=== PATIENT | female | born 1955 | race Caucasian/White ===

== ENCOUNTER 2017-07-03 20:21 | Emergency (ER) | payer OTHER ==
[2017-07-03] MEDS ORDERED: Aspirin Low Dose CHEW TAB* 81 MG PO ONE (21:01)
[2017-07-03] MEDS ORDERED: Nitroglycerin TAB 0.4 MG* 0.4 MG TAB SL ONE (21:09)
[2017-07-03] MEDS ORDERED: Metoprolol Tartrate TAB* 25 MG PO ONE (21:10)
[2017-07-03 21:30] LABS: Hematocrit 40 % (35-47); Hemoglobin 13.1 g/dl (12.0-16.0); Mean Corpuscular HGB Conc 33 g/dl (31-36); Mean Corpuscular Hemoglobin 28 pg (27-31); Mean Corpuscular Volume 85 fL (80-97); Mean Platelet Volume 8 um3 (7.4-10.4); Red Blood Count 4.67 10^6/ul (4.0-5.4); Red Cell Distribution Width 14 % (10.5-15); White Blood Count 13.4 10^3/ul (3.5-10.8)
[2017-07-03 21:44] LABS: Calcium 9.4 mg/dL (8.6-10.3); EGFR African American 100.4 (>60); Globulin 3.1 g/dL (2-4); Potassium 3.9 mmol/L (3.5-5.0); Total Bilirubin 0.2 mg/dL (0.2-1.0); Total Protein 7.1 g/dL (6.4-8.9)
--- NOTE | 2017-07-03 22:03 | RAD ---
INDICATION: Chest pain COMPARISON: Chest x-ray October 21, 2010 TECHNIQUE: Single AP portable view of the chest was obtained. FINDINGS: Image quality is compromised due to the relative inferiority of a portable chest x-ray. The heart and mediastinum exhibit normal size and contour. The lungs are grossly clear. There is no evidence of a large pleural effusion. Visualized bones are normal for the patient's age. IMPRESSION: No radiographic evidence for acute cardiopulmonary abnormality on this portable chest x-ray.
--- NOTE | 2017-07-04 00:25 | ED ---
Nkechi Anderson Alfonso, scribed for Brittaney Mclaughlin MD on 07/04/17 at 0024 . Progress - Progress Note Progress Note: REEVALUATION AT 0020 repeat troponin 0 Reviewed labs with patient. Expressed to the patient medical advice that she should stay for further work up and management including a stress test. The risks of leaving AMA, including , reviewed with patient. Pt states has to go home second to animals at home. Recommend pt call 911, return if changes her mind or any symptoms. REviewed risks of leaving - paperwork reviewed and signed. She understands and agrees. Pt will call PCP tomorrow morning or return Course/Dx - Diagnoses Provider Diagnoses: Angina of effort, Hypertension, uncontrolled The documentation as recorded by the Nkechi dave Alfonso accurately reflects the service I personally performed and the decisions made by me, Brittaney Mclaughlin MD.
[2017-07-04 01:18] VITALS: BP 180/79
--- NOTE | 2017-07-04 13:20 | ED ---
Tristin Anderson Nilda, scribed for Darryl Maher MD on 07/03/17 at 2153 . Complex/Multi-Sys Presentation - HPI Summary HPI Summary: This patient is a 62 year old F BIBA presenting to [facility] with a chief complaint of left arm pain after putting up fencing in her yard earlier today. The patient rates the pain 0/10 in severity. Symptoms aggravated by nothing. Symptoms alleviated by spontaneous resolution. Patient reports jaw pain and fatigue. Patient denies CP, SOB, and edema. PMHx includes cancer and borderline diabetes. FHx CO. - History Of Current Complaint Chief Complaint: EDChestPainROMI Time Seen by Provider: 07/03/17 21:00 Hx Obtained From: Patient Onset/Duration: Sudden Onset, Lasting Hours Severity Currently: None Associated Signs And Symptoms: Positive: Other - jaw pain and fatigue; denies CP , SOB, taking aspirin, and edema - Allergies/Home Medications Allergies/Adverse Reactions: Allergies Allergy/AdvReac Type Severity Reaction Status Date / Time Latex Allergy Coughing Verified 05/29/16 11:14 PMH/Surg Hx/FS Hx/Imm Hx Endocrine/Hematology History: Denies: Hx Diabetes, Hx Anemia - POST MENOPAUSAL BLEEDING Cardiovascular History: Denies: Hx Congestive Heart Failure, Hx Hypertension, Hx Pacemaker/ICD History: Denies: Hx Renal Disease Sensory History: Reports: Hx Contacts or Glasses - GLASSES WILL LEAVE AT HOME ON DOS Denies: Hx Hearing Aid Opthamlomology History: Reports: Hx Contacts or Glasses - GLASSES WILL LEAVE AT HOME ON DOS Neurological History: Reports: Hx Headaches, Hx Migraine - OCCASIONALLY Psychiatric History: Denies: Hx Panic Disorder - Cancer History Hx Chemotherapy: No Hx Radiation Therapy: No - Surgical History Surgery Procedure, Year, and Place: APPENDECTOMY 2001. LEFT KNEE SCOPING 2008 [facility] [place]. D & C 's Hx Anesthesia Reactions: No Infectious Disease History: No Infectious Disease History: Denies: Traveled Outside the [place] in Last 30 Days - Family History Known Family History: Positive: Cardiac Disease - Social History Alcohol Use: Rare Alcohol Amount: 2 DRINKS MONTHLY Substance Use Type: Reports: None Smoking Status (MU): Never Smoked Tobacco Review of Systems Positive: Fatigue. Negative: Fever, Chills Negative: Erythema Negative: Sore Throat Negative: Chest Pain Negative: Shortness Of Breath, Cough Negative: Abdominal Pain, Vomiting, Nausea Negative: dysuria, flank pain Positive: Other - jaw pain and arm pain. Negative: Myalgia, Edema Negative: Rash Neurological: Other - negative dizziness All Other Systems Reviewed And Are Negative: Yes Physical Exam - Summary Physical Exam Summary: Constitutional: Well-developed, Well-nourished, Alert. (-) Distressed Skin: Warm, Dry HENT: Normocephalic; Atraumatic Eyes: Conjunctiva normal Neck: Musculoskeletal ROM normal neck. (-) JVD, (-) Stridor, (-) Tracheal deviation Cardio: Rhythm regular, rate normal, Heart sounds normal; Intact distal pulses; The pedal pulses are 2+ and symmetric. Radial pulses are 2+ and symmetric. (-) Murmur Pulmonary/Chest wall: Effort normal. (-) Respiratory distress, (-) Wheezes, (-) Rales Abd: Soft, (-) Tenderness, (-) Distension, (-) Guarding, (-) Rebound Musculoskeletal: (-) Edema Lymph: (-) Cervical adenopathy Neuro: Alert, Oriented x3 Psych: Mood and affect Normal Triage Information Reviewed: Yes Vital Signs On Initial Exam: Initial Vitals Temp Pulse Resp BP Pulse Ox 97.8 F 98 20 155/77 97 07/03/17 20:31 07/03/17 20:31 07/03/17 20:31 07/03/17 20:31 07/03/17 20:31 Vital Signs Reviewed: Yes Diagnostics - Vital Signs Vital Signs Temp Pulse Resp BP Pulse Ox 07/03/17 20:31 97.8 F 98 20 155/77 97 - Laboratory Lab Results: Lab Results 07/03/17 07/03/17 07/03/17 Range/Units 21:21 21:21 21:21 WBC 13.4 H (3.5-10.8) 10^3/ul RBC 4.67 (4.0-5.4) 10^6/ul Hgb 13.1 (12.0-16.0) g/dl Hct 40 (35-47) % MCV 85 (80-97) fL MCH 28 (27-31) pg MCHC 33 (31-36) g/dl RDW 14 (10.5-15) % Plt Count 305 (150-450) 10^3/ul MPV 8 (7.4-10.4) um3 Neut % (Auto) 64.3 (38-83) % Lymph % (Auto) 22.7 L (25-47) % [place] % (Auto) 8.6 (1-9) % Eos % (Auto) 3.4 (0-6) % Baso % (Auto) 1.0 (0-2) % Absolute Neuts (auto) 8.6 H (1.5-7.7) 10^3/ul Absolute Lymphs (auto) 3.0 (1.0-4.8) 10^3/ul Absolute Monos (auto) 1.1 H (0-0.8) 10^3/ul Absolute Eos (auto) 0.5 (0-0.6) 10^3/ul Absolute Basos (auto) 0.1 (0-0.2) 10^3/ul Absolute Nucleated RBC 0 10^3/ul Nucleated RBC % 0 Sodium 136 (133-145) mmol/L Potassium 3.9 (3.5-5.0) mmol/L Chloride 105 (101-111) mmol/L Carbon Dioxide 24 (22-32) mmol/L Anion Gap 7 (2-11) mmol/L BUN 21 (6-24) mg/dL Creatinine 0.75 (0.51-0.95) mg/dL Est GFR ( Amer) 100.4 (>60) Est GFR (Non-Af Amer) 78.0 (>60) BUN/Creatinine Ratio 28.0 H (8-20) Glucose 136 H (70-100) mg/dL Lactic Acid 1.1 (0.5-2.0) mmol/L Calcium 9.4 (8.6-10.3) mg/dL Total Bilirubin 0.20 (0.2-1.0) mg/dL AST 20 (13-39) U/L ALT 23 (7-52) U/L Alkaline Phosphatase 74 (34-104) U/L Troponin I 0.00 (<0.04) ng/mL Total Protein 7.1 (6.4-8.9) g/dL Albumin 4.0 (3.2-5.2) g/dL Globulin 3.1 (2-4) g/dL Albumin/Globulin Ratio 1.3 (1-3) Result Diagrams: 07/03/17 21:21 07/03/17 21:21 Lab Statement: Any lab studies that have been ordered have been reviewed, and results considered in the medical decision making process. - Radiology CXR Radiology Interpretation Completed By: Radiologist - no radiographic evidence for acute cardiopulmonary abnormality on this portable chest xray. ED physician has reviewed this radiology report and agrees. - EKG 2042 Cardiac Rate: NL - 97 bpm EKG Rhythm: Sinus Rhythm EKG Interpretation: No STEMI Re-Evaluation - Re-Evaluation First Eval Re-Evaluation Time: 23:45 Comment: Pain resolved before NTG treatment. We recommended that patient be admitted for stress test but patient resisted. Patient is willing to wait for Troponin. Patient refused IV. Complex Multi-Symp Course/Dx Course Of Treatment: This patient is a 62 year old F BIBA presenting to [facility] with a chief complaint of left arm pain after putting up fencing in her yard earlier today. The patient rates the pain 0/10 in severity. Symptoms aggravated by nothing. Symptoms alleviated by spontaneous resolution. Patient reports jaw pain and fatigue. Patient denies CP, SOB, and edema. PMHx includes cancer and borderline diabetes. FHx CO. An EKG [2042] reveals NSR, 97 bpm, and no STEMI. CXR, per radiologist, reveals no radiographic evidence for acute cardiopulmonary abnormality on this portable chest xray. ED physician has reviewed this radiology report and agrees. [23:45] Re-eval: Pain resolved before NTG treatment. We recommended that patient be admitted for stress test but patient resisted. Patient is willing to wait for Troponin. Patient refused IV. - Diagnoses Provider Diagnoses: Angina of effort, Hypertension, uncontrolled Discharge - Discharge Plan Condition: Stable Disposition: OTHER Discharge Disposition Comment: Patient is signed out to Dr. Mclaughlin, pending disposition, awaiting Trop The documentation as recorded by the Tristin dave Nilda accurately reflects the service I personally performed and the decisions made by , Darryl Maher MD.
== END 2017-07-04 01:19 | disposition short-term general hospital (02) ==
LOC: ED 20:21
DX: I20.8 Other forms of angina pectoris (principal); I10 Essential (primary) hypertension; Z82.49 Family history of ischemic heart disease and other diseases of the circulatory system; R73.03 Prediabetes; Z85.9 Personal history of malignant neoplasm, unspecified
CPT/HCPCS: 36415; 71010; 80053; 83605; 84484; 85025; 93005; 99284; A9270-GY